=== PATIENT | female | born 1950 | race Caucasian/White ===

== ENCOUNTER → 2016-08-06 | Outpatient (CLI) | payer OTHER ==
--- NOTE | 2016-08-06 14:46 | DIAGNOSTIC IMAGING REPORT ---
RIGHT KNEE 4 OR MORE CLINICAL HISTORY: RIGHT KNEE AND LEFT SHOULDER PAIN Right pain COMPARISON: None. DISCUSSION: Moderate degenerative change medial joint compartment and patellofemoral joint. Moderate reactive osteophytic change. Lateral joint compartment is generally well preserved. Bony mineralization is within normal limits There is no evidence for soft tissue swelling. IMPRESSION: Moderate rather significant degenerative change patellofemoral joint and medial joint compartment. No acute bony abnormality. Electronically signed by: Jonathon Goldman M.D. 08/06/2016 2:45 PM Dictated Date/Time: 08/06/2016 2:44 PM
--- NOTE | 2016-08-06 14:54 | DIAGNOSTIC IMAGING REPORT ---
LEFT SHOULDER MIN 2 VIEWS CLINICAL HISTORY: Left shoulder pain COMPARISON: None. DISCUSSION: No fractures or dislocations are visualized. There are faint peritendinous calcifications located superior to the left humeral head. The findings are likely secondary to calcific tendinitis. IMPRESSION: 1. No acute fractures or dislocations 2. Probable calcific tendinitis. Electronically signed by: Kevin Cleaning M.D. 08/06/2016 2:52 PM Dictated Date/Time: 08/06/2016 2:52 PM
== END | disposition home or self-care (01) ==
LOC: C.RDSM 13:50
PROVIDERS: ATTEND Internal Medicine
DX: R52 Pain, unspecified (principal)

== ENCOUNTER 2024-02-17 08:07 | Observation (INO) ==
--- NOTE | 2024-01-05 13:33 | PAT Medication Instructions ---
Medication Instructions Date of Service January 05, 2024 Home Medications ascorbic acid (vitamin C) 100 mg tablet (Vitamin C) 100 mg PO DAILY aspirin 81 mg capsule 81 mg PO DAILY baclofen 10 mg tablet 10 mg PO BID cetirizine 10 mg tablet (Zyrtec) 10 mg PO HS cholecalciferol (vitamin D3) 25 mcg (1,000 unit) capsule (Vitamin D3) 25 mcg PO DAILY cyanocobalamin (vitamin B-12) 50 mcg tablet (Vitamin B-12) 50 mcg PO DAILY famotidine 20 mg tablet 20 mg PO BID lactobacillus combination no.4 3 billion cell capsule (Probiotic) 3,000 mmu cells PO DAILY lorazepam 0.5 mg tablet 0.5 mg PO HS PRN meloxicam 15 mg tablet 15 mg PO QAM metoprolol tartrate 50 mg tablet 50 mg PO HS multivitamin 1 tab PO QAM triamterene 37.5 mg-hydrochlorothiazide 25 mg tablet 1 tab PO QAM turmeric root extract 500 mg tablet 1,000 mg PO DAILY valsartan 160 mg tablet 160 mg PO QAM vitamin E 268 mg (400 unit) capsule 268 mg PO DAILY ASK your surgeon for instructions meloxicam 15 mg tablet 15 mg PO QAM ASK your prescriber and surgeon aspirin 81 mg capsule 81 mg PO DAILY STOP taking 2 weeks before surgery (or as soon as possible if surgery is within 2 weeks) turmeric root extract 500 mg tablet 1,000 mg PO DAILY vitamin E 268 mg (400 unit) capsule 268 mg PO DAILY DO NOT take the morning of surgery ascorbic acid (vitamin C) 100 mg tablet (Vitamin C) 100 mg PO DAILY cholecalciferol (vitamin D3) 25 mcg (1,000 unit) capsule (Vitamin D3) 25 mcg PO DAILY cyanocobalamin (vitamin B-12) 50 mcg tablet (Vitamin B-12) 50 mcg PO DAILY lactobacillus combination no.4 3 billion cell capsule (Probiotic) 3,000 mmu cells PO DAILY multivitamin 1 tab PO QAM triamterene 37.5 mg-hydrochlorothiazide 25 mg tablet 1 tab PO QAM valsartan 160 mg tablet 160 mg PO QAM Take morning of surgery With a small sip of water, OTHERWISE NOTHING TO EAT OR DRINK AFTER MIDNIGHT: baclofen 10 mg tablet 10 mg PO BID famotidine 20 mg tablet 20 mg PO BID Take evening before surgery baclofen 10 mg tablet 10 mg PO BID cetirizine 10 mg tablet (Zyrtec) 10 mg PO HS famotidine 20 mg tablet 20 mg PO BID lorazepam 0.5 mg tablet 0.5 mg PO HS PRN(if needed) metoprolol tartrate 50 mg tablet 50 mg PO HS Other Notes If you have any questions please call us at [phone] or [phone] or [phone] or [phone]
--- NOTE | 2024-01-14 12:58 | Anesthesiology Consultation ---
Date of Service January 14, 2024 Assessment & Plan (1) Encounter for pre-operative examination: Plan - awaiting surgeon ordered medical (Waleska Whitney PA-C 01/17/24) and cardiology ([facility] 01/24/24) clearances. Chart Review Chart Review: Pending: Refer to Additional Notes / Consult section and Patient seen in Pre Admission Testing Teaching & Discussion Pre-Anesthesia Teaching/Discussion Notes: Instructed NPO after midnight before surgery, except medications with 15 cc of water. Medication instructions provided according to the PAT guidelines. History Surgery Operation Date: 02/17/24 11:25 Proposed Procedures p OP: Right Total Knee Arthroplasty - Contreras Marvin MD Height/Weight Height: 5 ft 5.5 in Weight: 119.2 kg Allergies Allergy/AdvReac Type Severity Reaction Status Date / Time adhesive Allergy Unknown Rash Verified 01/03/24 10:50 Medications Home Medications Medication Instructions Recorded Confirmed Last Taken ascorbic acid (vitamin C) 100 mg 100 mg PO DAILY 01/03/24 01/03/24 Unknown tablet (Vitamin C) aspirin 81 mg capsule 81 mg PO DAILY 01/03/24 01/03/24 Unknown baclofen 10 mg tablet 10 mg PO BID 01/03/24 01/03/24 Unknown cetirizine 10 mg tablet (Zyrtec) 10 mg PO HS 01/03/24 01/03/24 Unknown cholecalciferol (vitamin D3) 25 25 mcg PO DAILY 01/03/24 01/03/24 Unknown mcg (1,000 unit) capsule (Vitamin D3) cyanocobalamin (vitamin B-12) 50 50 mcg PO DAILY 01/03/24 01/03/24 Unknown mcg tablet (Vitamin B-12) famotidine 20 mg tablet 20 mg PO BID 01/03/24 01/03/24 Unknown lactobacillus combination no.4 3 3,000 mmu cells PO DAILY 01/03/24 01/03/24 Unknown billion cell capsule (Probiotic) lorazepam 0.5 mg tablet 0.5 mg PO HS PRN anxiety 01/03/24 01/03/24 Unknown meloxicam 15 mg tablet 15 mg PO QAM 01/03/24 01/03/24 Unknown metoprolol tartrate 50 mg tablet 50 mg PO HS 01/03/24 01/03/24 Unknown multivitamin 1 tab PO QAM 01/03/24 01/03/24 Unknown triamterene 37.5 1 tab PO QAM 01/03/24 01/03/24 Unknown mg-hydrochlorothiazide 25 mg tablet turmeric root extract 500 mg tablet 1,000 mg PO DAILY 01/03/24 01/03/24 Unknown valsartan 160 mg tablet 160 mg PO QAM 01/03/24 01/03/24 Unknown vitamin E 268 mg (400 unit) capsule 268 mg PO DAILY 01/03/24 01/03/24 Unknown Past Medical History Medical History (Updated 01/14/24 @ 14:26 by Sneha Muñoz PA-C) Anxiety Back pain notes stability-reports occasional flare-denies recent episode Cardiac murmur follows w/ Dr Swann ([facility]) GERD (gastroesophageal reflux disease) controlled, stable per pt History of COVID-19 (2021) no hosp, resolved History of rupture of Achilles tendon (2022) right foot, complete tear-not repaired by patient preference HTN (hypertension) controlled, stable per-white coat HTN PONV (postoperative nausea and vomiting) denies needing scop patch Seasonal allergies Sleep apnea CPAP Slow to wake up after anesthesia denies needing re-intubation Patient denies h/o stroke, seizures, heart attack, heart failure, DM, blood clots/DVTs or blood transfusions. Exercise / Class Metabolic Activity II 4-5 Yardwork/Stairs/Walk up hill (shortness of breath with one flight of stairs since onset of knee dysfunction-ongoing for several years-denies change or worsening-ambulates with cane; denies chest discomfort) Past Surgical History Surgical History (Updated 01/14/24 @ 14:25 by Sneha Muñoz PA-C) History of lumpectomy of left breast benign Hx of section x 2 Hx of cholecystectomy Hx of colonoscopy Past Anesthesia History No Family Hx of Anesthesia Complications and Other (slow to wake-denies needing re-intubation) History of PONV History of PONV (denies needing scop patch) and Hx of Motion Sickness Social History Smoking Status: Never smoker Do You Dip or Chew Tobacco: No Hx Alcohol Use: Yes Alcohol type: beer alcohol intake frequency: holidays/special occasions only Hx Substance Use: No substance use type: does not use Review of Systems Patient denies chest pain, fever, chills, cough, wheezing, or palpitations. Physical Exam Vital Signs Vitals BP 143/68 P 55 TEMP 97.6 SP02 98% on RA RESP 18 Physical Patient resting comfortably in chair in no acute distress, alert and oriented, responding appropriately throughout visit Full cervical extension range of motion without pain TMD < 3 finger breadths Mallampati Score 3 Dentition: one crown, denies chipped or loose teeth, caps, implants or bridges Lungs: normal respiratory effort. Good air movement, clear throughout to auscultation, no adventitious breath sounds Cardiac: regular rate and rhythm, no murmurs noted Carotid arteries: negative bruit bilat Lab Results Anesthesia Preop Results Results Anesthesia Widget: WBC 7.90 K/ul (4.8-10.8) 01/14/24 Hgb 13.3 g/dl (12.0-16.0) 01/14/24 Hct 40.9 % (37.0-47.0) 01/14/24 Plt 296 K/uL (130-400) 01/14/24 Na 138 mmol/L (136-145) 01/14/24 K 4.8 mmol/L (3.5-5.1) 01/14/24 Cl 104 mmol/L (98-107) 01/14/24 CO2 28 mmol/L (21-32) 01/14/24 BUN 26 mg/dl (6-23) H 01/14/24 Creat 1.24 mg/dl (0.6-1.2) H 01/14/24 Glucose Level 86 mg/dl (70-99(Fasting)) 01/14/24 PT 10.4 Seconds (9.0-12.0) 01/14/24 PTT 29 Seconds (21-31) 01/14/24 INR 1.0 (0.9-1.1) 01/14/24 Urine Color Yellow 01/14/24 Urine Appearance Clear (Clear) 01/14/24 Urine pH 6.5 (4.5-7.5) 01/14/24 Urine Specific [place] 1.009 (1.000-1.030) 01/14/24 Urine Protein Negative (Negative) 01/14/24 Urine Glucose (UA) Negative (Negative) 01/14/24 Urine Ketones Negative (Negative) 01/14/24 Urine Blood Negative (Negative) 01/14/24 Urine Nitrite Negative (Negative) 01/14/24 Urine Bilirubin Negative (Negative) 01/14/24 Urine Urobilinogen Negative (Negative) 01/14/24 Urine Leukocyte Esterase 1+ (Negative) H 01/14/24 Urine WBC (Auto) 0-5 /hpf (0-5) 01/14/24 Urine RBC (Auto) 0-2 /hpf (0-2) 01/14/24 Urine Hyaline Casts (Auto) 0-2 /lpf (0-2) 01/14/24 Urine Epithelial Cells (Auto) 0-2 /hpf (0-2) 01/14/24 Urine Bacteria (Auto) None Seen (None Seen) 01/14/24 Blood Type O Positive 01/14/24 Antibody Screen NEGATIVE 01/14/24 Testing Electrocardiogram Date: 06/18/23 NSR, rate 75 bpm Inferior infarct, age undetermined Possible anterolateral infarct cited on or before 04/05/2019 Chest X-Ray Date: 01/14/24 No acute process. Echocardiogram Date: 06/01/23 EF 60-65% Severe aortic valve sclerosis-no aortic valve stenosis, trivial aortic regurgitation Grade I diastolic dysfunction Moderately dilated LA Moderately enlarged RV Stress Test Date: 07/30/23 Dobutamine MPHR 95% Technically difficult study Normal stress echo
--- NOTE | 2024-02-10 10:52 | History & Physical Report ---
Date of Service February 10, 2024 Assessment & Plan (1) DJD (degenerative joint disease) of knee: Plan: Plan is for right total knee replacement with patient's specific implants overnight stay and then discharged to home home health with [facility] (2) Obesity: History of Present Illness Chief Complaint: Right knee pain Primary Care Provider: NO PCP Patient is a morbidly obese 73-year-old female with a history of multiple orthopedic problems which include a chronically torn right Achilles tendon which has failed surgical and conservative treatment. She now presents with greater than 2 years of bilateral knee pain right greater than left. The pain is associated with marked instability marked decreased range of motion and pain rated as an 8 out of 10. She has radiographic evidence of end-stage arthritis of the knees and has failed both Visco and corticosteroid injections as well as PT and bracing. She is admitted for anticipated right total knee with possibility for second stage left total knee in April. Allergies Allergy/AdvReac Type Severity Reaction Status Date / Time adhesive Allergy Unknown Rash Verified 01/03/24 10:50 Home Medications Medication Instructions Recorded Confirmed Type ascorbic acid (vitamin C) 100 mg 100 mg PO DAILY 01/03/24 01/03/24 History tablet (Vitamin C) aspirin 81 mg capsule 81 mg PO DAILY 01/03/24 01/03/24 History baclofen 10 mg tablet 10 mg PO BID 01/03/24 01/03/24 History cetirizine 10 mg tablet (Zyrtec) 10 mg PO HS 01/03/24 01/03/24 History cholecalciferol (vitamin D3) 25 25 mcg PO DAILY 01/03/24 01/03/24 History mcg (1,000 unit) capsule (Vitamin D3) cyanocobalamin (vitamin B-12) 50 50 mcg PO DAILY 01/03/24 01/03/24 History mcg tablet (Vitamin B-12) famotidine 20 mg tablet 20 mg PO BID 01/03/24 01/03/24 History lactobacillus combination no.4 3 3,000 mmu cells PO DAILY 01/03/24 01/03/24 History billion cell capsule (Probiotic) lorazepam 0.5 mg tablet 0.5 mg PO HS PRN anxiety 01/03/24 01/03/24 History meloxicam 15 mg tablet 15 mg PO QAM 01/03/24 01/03/24 History metoprolol tartrate 50 mg tablet 50 mg PO HS 01/03/24 01/03/24 History multivitamin 1 tab PO QAM 01/03/24 01/03/24 History triamterene 37.5 1 tab PO QAM 01/03/24 01/03/24 History mg-hydrochlorothiazide 25 mg tablet turmeric root extract 500 mg tablet 1,000 mg PO DAILY 01/03/24 01/03/24 History valsartan 160 mg tablet 160 mg PO QAM 01/03/24 01/03/24 History vitamin E 268 mg (400 unit) capsule 268 mg PO DAILY 01/03/24 01/03/24 History Past Med/Surg History Problem List (Updated 02/10/24 @ 10:52 by Contreras Marvin MD) Obesity DJD (degenerative joint disease) of knee Encounter for pre-operative examination Medical History Sleep apnea CPAP Back pain notes stability-reports occasional flare-denies recent episode Anxiety Cardiac murmur follows w/ Dr Swann ([facility]) PONV (postoperative nausea and vomiting) denies needing scop patch Slow to wake up after anesthesia denies needing re-intubation GERD (gastroesophageal reflux disease) controlled, stable per pt History of rupture of Achilles tendon (2022) right foot, complete tear-not repaired by patient preference Seasonal allergies History of COVID-19 (2021) no hosp, resolved HTN (hypertension) controlled, stable per-white coat HTN Surgical History Hx of colonoscopy History of lumpectomy of left breast benign Hx of cholecystectomy Hx of section x 2 Social History Smoking Status: Never smoker Second Hand Exposure: No; Do You Dip or Chew Tobacco: No; Tobacco Cessation Education Requested by Patient: No Hx Alcohol Use: Yes Alcohol type: beer Hx Substance Use: No Preferred Language: Divehi Communication Ability: Effective Direct Care Counselor Required: No Beliefs That Will Affect Care: None Current Living Situation: Spouse Other Information That Helps Us Care for You: No Feels Safe at Home: Yes Safety Concerns: Feels Safe At This Time Assistive Devices: Cane and Glasses Review of Systems Review of Systems: Knee pain and instability Ankle pain and stiffness Physical Exam Physical Exam: Weight 120 kg BMI 43 General: Morbidly obese female who appears her stated age. HEENT: NCAT, EOMI, PERRLA Neck: Without bruits Heart: Distant heart sounds regular rate and rhythm sinus bradycardia with faint systolic murmur. Lungs: Breath sounds distant but clear in all frye Abdomen: Obese soft nontender bowel sounds are positive Extremities: Right knee shows varus deformity passive range of motion is 0 to 115 degrees flexion with 3 to 4 mm medial laxity positive effusion and pain. Neurological and vascular: Intact Results & Data Results & Data Vital Signs (Past 12 Hours) Blood pressure 148/70 Pulse 60
[~2024-02-17 08:07] MED LIST: METOPROLOL SUCC 50MG EXT REL TAB PO PRN; ROPIVACAINE 0.5% 5 MG/ML 30 ML VIAL ONE
[2024-02-17] MEDS: LR 60ML/HR IV SCH (09:06)
[2024-02-17] MEDS: CeleBREX 200 MG CAP PO SCH (09:22)
[2024-02-17] MEDS: GABAPENTIN 300 MG CAP PO SCH (09:22)
[2024-02-17] MEDS: traMADol HCL 50 MG TABLET PO SCH (09:22)
[2024-02-17] MEDS: ACETAMINOPHEN 500 MG TAB PO SCH (09:22)
[2024-02-17] MEDS: METOCLOPRAMIDE HCL 10 MG TABLET PO SCH (09:22)
[2024-02-17] MEDS: FAMOTIDINE 20 MG TAB PO SCH ×2 (09:22→20:17)
[2024-02-17] MEDS: dexAMETHasone**PF** 10 MG/ML VIAL IV SCH (09:23)
[2024-02-17] MEDS ORDERED: MIDAZOLAM HCL 1 MG/ML 2ML VIAL ONE ×2 (09:43→10:12)
[2024-02-17] MEDS ORDERED: ONDANSETRON INJ 2 MG/ML 2 ML VIAL IV PRN ×2 (10:13→13:20)
[2024-02-17] MEDS ORDERED: KETOROLAC 30 MG/ML VIAL IV PRN (10:13)
[2024-02-17] MEDS ORDERED: ATROPINE SULFATE 0.1 MG/ML 10ML SYR IV PRN (10:13)
[2024-02-17] MEDS ORDERED: PROMETHAZINE HCL 6.25 MG in SODIUM CHLORIDE 0.9% 50 ML IV PRN (10:13)
[2024-02-17] MEDS ORDERED: ePHEDrine sulfate 50 MG/ML AMP IV PRN (10:13)
[2024-02-17] MEDS ORDERED: HYDROmorphone INJ 1 MG/ML SYRINGE IV PRN (10:13)
--- NOTE | 2024-02-17 10:30 | History & Physical Bridge Note ---
Date of Service February 17, 2024 History & Physical Bridge Note I have examined the patient, reviewed the History & Physical and in the interval since the performance of the History & Physical I have noted the following changes of clinical significance: no changes noted
[2024-02-17] MEDS: TRANEXAMIC ACID 1,000 MG **IV Pre-op IV SCH (10:34)
[2024-02-17] MEDS ORDERED: PROPOFOL IV EMULSION 10 MG/ML 20 ML VIAL IV ONE ×4 (10:43→11:43)
[2024-02-17] MEDS: ceFAZolin 3000MG 3,000 MG/72.5 ML BAG IV SCH (10:50)
[2024-02-17] MEDS ORDERED: LABETALOL HCL IV 5 MG/ML 20ML IV ONE (11:11)
[2024-02-17] MEDS ORDERED: DexMEDEtomidine HCL IV 100 MCG/ML VIAL IV ONE (11:18)
[2024-02-17] MEDS: ORTHO JOINT ANESTHETIC ONE (11:23)
[2024-02-17] MEDS: TRANEXAMIC ACID 1,000 MG **IV Intra-op IV SCH (11:48)
[2024-02-17] MEDS ORDERED: KETOROLAC 30 MG/ML VIAL ONE (12:01)
[2024-02-17] MEDS: ROPIV 0.5% 246mg, Ketorolac 30mg, EPINEPHrine 0.5mg in NSS INFIL SCH (12:14)
--- NOTE | 2024-02-17 12:24 | Post Operative Brief Note ---
Immediate Post Op Note Date of Surgery February 17, 2024 Pre & Post Diagnosis Operation Date: 02/17/24 10:35 Pre-Op Diagnosis: Right Knee Degenerative Joint Disease Post-Op Diagnosis: Right Knee Degenerative Joint Disease I identified the patient and participated in the time-out.: Yes Procedure Operation Date: 02/17/24 10:35 Actual Procedures p Right Total Knee Replacement(Right) - Contreras Marvin MD Surgeon Contreras Marvin MD Body Design Checker none Estimated Blood Loss 150 Findings Consistent with Post-Op Diagnosis Drains Hemovac Drain
--- NOTE | 2024-02-17 12:38 | Operative Report ---
Post Operative Report Pre & Post Diagnosis Operation Date: 02/17/24 10:35 Pre-Op Diagnosis: Right Knee Degenerative Joint Disease Post-Op Diagnosis: Right Knee Degenerative Joint Disease I identified the patient and participated in the time-out.: Yes Procedure Operation Date: 02/17/24 10:35 Actual Procedures p Right Total Knee Replacement(Right) - Contreras Marvin MD Surgeon Contreras Marvin MD Lens Generator none Estimated Blood Loss 150 Findings Consistent with Post-Op Diagnosis severe tricompartmental degenerative changes. Specimens Bone and cartilage fragments Complications none Indications components used: [employer]hew journey 2 posterior stabilized knee system: Femur size 4 with Oxinium coating, tibia size 4 x 11, patella size 32 oval. Description of Procedure Following satisfactory spinal anesthesia the patient was supine on the operating room table. The right lower extremity was prepared with ChloraPrep and draped sterilely. A surgical timeout was performed. A midline incision was made and deepened through a fairly large subcutaneous fat layer. Hemostasis was obtained. A median parapatellar arthrotomy was performed. The knee showed the changes noted above. Attention was first turned to the patella. The patella was freehand cut and sized for a 32 button. This did relax the extensor mechanism to enhance exposure to the lateral side of the knee. The cruciate ligaments were excised. The patient matched femoral block was applied. Femoral distal rotation and resection were setting completed. The 4-in-1 block was used to finish preparation of the femur. The tibial meniscal fragments were excised. The patient matched tibial block was applied. Tibial resection was completed. Soft tissue balancing was completed in flexion and extension. A trial reduction with the above-mentioned components was performed and showed very good tensioning and stability on the collateral ligaments from full extension to more than 100 [id number] degrees of flexion limited by the size of the patient's leg. The patella tracked well throughout. The trial components were removed. The capsule was prepared with the orthopedic cocktail. After irrigation and drying the components were cemented using Pop Z be cement cementing the tibia first, femur second, and patella third. When the cemented hardened the knee was checked and showed very good stability and patellar tracking. The wound was irrigated with 500 cc of experience irrigation. A Hemovac drain was placed. The arthrotomy was closed with interrupted [id number] sutures of 1 Vicryl and a running suture of 0 strata fix. Following irrigation the deeper subcutaneous fat layer was closed with 0 strata fix. The most superficial layer with a running subcuticular stitch of 3 oh strata fix. Dermabond Prineo and a negative pressure wound dressing were applied. Patient was returned to her bed and taken to the recovery room in stable condition. I attest to the content of the Intraoperative Record and any orders documented therein. Any exceptions are noted below.
--- NOTE | 2024-02-17 12:54 | Anesthesiology Progress Note ---
Date of Service February 17, 2024 Anesthesia Post Procedure Vital Signs Vital Signs: Temp Pulse Pulse Resp BP Pulse Ox O2 Del Method 02/17/24 12:28 36.4 C L 66 18 127/58 L 100 Oxymask 02/17/24 09:05 36.8 C 67 18 195/79 H 97 Room Air O2 Flow Rate 02/17/24 12:28 9 02/17/24 09:05 Pain Intensity Left Lower Back: Pain Intensity: 5 Transfer of Care Handoff Completed per policy Notes Mental Status: alert / awake / arousable Patient Amnestic to Procedure: Yes Nausea / Vomiting: adequately controlled Pain: adequately controlled Airway Patency, RR, SpO2: stable & adequate BP & HR: stable & adequate Hydration State: stable & adequate Neuraxial Anesthesia: was administered and sensory block is resolving Anesthetic Complications: no major complications apparent
[2024-02-17] MEDS ORDERED: LORazepam 0.5 MG TAB PO PRN (13:20)
[2024-02-17] MEDS ORDERED: bisacodyL 10 MG SUPP PR PRN (13:20)
[2024-02-17] MEDS ORDERED: METOCLOPRAMIDE HCL INJ 5 MG/ML 2 ML VIAL IV PRN (13:20)
[2024-02-17] MEDS ORDERED: NALOXONE HCL 0.4 MG/1 ML VIAL/CARP IV PRN (13:20)
[2024-02-17] MEDS ORDERED: MAGNESIUM HYDROXIDE SUSP 30 ML UDC PO PRN (13:20)
[2024-02-17] MEDS: SODIUM CHLORIDE 0.9% 1,000 ML IV SCH (14:23)
[2024-02-17] MEDS: traMADol HCL 50 MG TABLET PO PRN (16:23)
[2024-02-17] MEDS: ceFAZolin 2000MG 2,000 MG/15 ML SYR IV SCH (18:05)
[2024-02-17] MEDS: BACLOFEN 10 MG TAB PO SCH (20:17)
[2024-02-17] MEDS: METOPROLOL SUCC 50MG EXT REL TAB PO SCH (20:17)
[2024-02-17] MEDS: ASPIRIN 81 MG ECTAB PO SCH (20:17)
[2024-02-17] MEDS: CETIRIZINE HCL 10 MG TABLET PO SCH (20:17)
[2024-02-17] MEDS: DOCUSATE SODIUM 100 MG CAP PO SCH (20:17)
[2024-02-17] MEDS: SENNA 8.6 MG TAB PO SCH (20:17)
[2024-02-18 05:36] LABS: Hematocrit (blood only) 32.9 % (37.0-47.0); Mean Corpuscular Hgb Conc 33.4 g/dL (32.0-36.0); Mean Corpuscular Volume 89.6 fL (80.0-100.0); Mean Platelet Volume 9.5 fL (9.4-12.4); Platelet Count 268 K/uL (130-400); RDW Coefficient of Variation 12.5 % (11.5-14.5); RDW Standard Deviation 41.2 fL (36.4-46.3); Red Blood Count 3.67 M/uL (4.20-5.40)
[2024-02-18 05:56] LABS: Creatinine Clr Calc Pharmacy 48.3 ml/min; Est GFR (African American) 45.3 ml/min; Est GFR (Non-African American) 39.1 ml/min; Potassium 4.3 mmol/L (3.5-5.1)
--- NOTE | 2024-02-18 07:16 | Orthopedic Progress Note ---
Date of Service February 18, 2024 Assessment & Plan (1) Obesity: (2) DJD (degenerative joint disease) of knee: Plan: patient is stable today. Rehabilitation placement is pending. We will add a CPAP machine per patient's request. Also DC meloxicam as BUN and creatinine are slightly elevated. Discharged pending rehabilitation bed availability. Admission and Anticipated Discharge Date Admission Date: February 17, 2024 Subjective postoperative day #1 right total knee replacement Patient reports no complaints of pain. She slept well last night. She is awaiting disposition as she has changed her plan and would like to go to a rehab forrecovery Physical Exam Physical Exam: Patient is examined at the bedside she is awake alert and oriented x 3 Her dressing is clean dry and intact her thigh and calf are soft and nontender and she is neurologically and vascularly intact Results & Data Vital Signs (Past 12 Hours) Vital Signs Temp Pulse Resp BP Pulse Ox O2 Del Method 02/18/24 03:00 36.6 C 59 L 18 159/75 H 95 Room Air 02/17/24 23:00 36.4 C L 62 16 157/68 H 94 Room Air 02/17/24 19:20 36.7 C 61 18 145/64 H 92 Room Air Laboratory Results hemoglobin is stable at 11 BUN and creatinine are slightly elevated
[2024-02-18 07:37] VITALS: RESP 19
[2024-02-18] MEDS: ADVANCED PROBIOTIC 625 MG CAPSULE PO SCH (08:45)
[2024-02-18] MEDS: TRIAMTERENE/HCTZ 37.5/25MG TAB PO SCH (08:46)
[2024-02-18] MEDS: MULTIVITAMIN TAB PO SCH (08:46)
[2024-02-18] MEDS: CHOLECALCIFEROL 25 MCG (1000 UNITS) TAB PO SCH (08:46)
[2024-02-18] MEDS: CYANOCOBALAMIN (B-12) 100 MCG TABLET PO SCH (08:46)
[2024-02-18] MEDS: TOCOPHERYL, DL-ALPHA 400 UNITS 180 MG CAP PO SCH (08:46)
[2024-02-18] MEDS: VALSARTAN 80 MG TAB PO SCH (08:47)
[2024-02-18] MEDS ORDERED: NON-FORMULARY MEDICATION (Ascorbic Acid (Vitamin C) [Vitamin C] 100 mg Tablet) PO SCH (09:00)
[2024-02-18] MEDS ORDERED: MELOXICAM 7.5 MG TAB PO SCH (09:00)
[2024-02-18 11:38] VITALS: BP 144/69; PULSE 56; TEMP 97.7; O2SAT 100
--- NOTE | 2024-02-23 20:27 | Discharge Summary ---
Date of Service February 23, 2024 Admission HPI Per Admitting Provider Patient is a morbidly obese 73-year-old female with a history of multiple orthopedic problems which include a chronically torn right Achilles tendon which has failed surgical and conservative treatment. She now presents with greater than 2 years of bilateral knee pain right greater than left. The pain is associated with marked instability marked decreased range of motion and pain rated as an 8 out of 10. She has radiographic evidence of end-stage arthritis of the knees and has failed both Visco and corticosteroid injections as well as PT and bracing. She is admitted for anticipated right total knee with pos sibility for second stage left total knee in April. Admission Exam Per Admitting Provider Physical Exam: Weight 120 kg BMI 43 General: Morbidly obese female who appears her stated age. HEENT: NCAT, EOMI, PERRLA Neck: Without bruits Heart: Distant heart sounds regular rate and rhythm sinus bradycardia with faint systolic murmur. Lungs: Breath sounds distant but clear in all frye Abdomen: Obese soft nontender bowel sounds are positive Extremities: Right knee shows varus deformity passive range of motion is 0 to 115 degrees flexion with 3 to 4 mm medial laxity positive effusion and pain. Neurological and vascular: Intact Principal Diagnosis right knee osteoarthritis Discharge Data Allergies Allergy/AdvReac Type Severity Reaction Status Date / Time adhesive Allergy Intermediate Rash Verified 02/17/24 09:19 latex Allergy Intermediate rash, Verified 02/17/24 09:19 redness of skin levofloxacin Allergy Mild Unknown; ? Verified 02/17/24 09:19 Hives Sulfa (Sulfonamide Allergy Mild Unknown: ? Verified 02/17/24 09:19 Antibiotics) Hives Procedures Performed Operation Date: 02/17/24 10:35 Actual Procedures p Right Total Knee Replacement(Right) - Contreras Marvin MD Ordered Studies 02/17/24 05:00 US - OR guided needle placemen Routine Hospital Course (1) Obesity: (2) DJD (degenerative joint disease) of knee: Patient: NARCISO MOREIRA Admit Date: 02/17/24 MR#: [id number] Att Phy: Contreras Marvin MD Acct ID: [id number] Shanice Phy: Waleska Hardin PA-C Date: 1950 Fam Phy: Age: 73 Location: 3E Sex: F Room/Bed: E3-1 cc: ~ *NOTICE TO RECEIVING CONSTITUTION PARTY/AGENCY This information is strictly Confidential and protected under [place] law. [place] law prohibits you from making any further disclosure of this information unless further disclosure is expressly permitted by the written consent of the person to whom it pertains or is authorized by law. A general authorization for the release of medical or other information is not sufficient for this purpose. Hospital accepts no responsibility if the information is made available to any other person, INCLUDING THE PATIENT. Date of Service February 18, 2024 Assessment & Plan (1) Obesity: (2) DJD (degenerative joint disease) of knee: Plan: patient is stable today. Rehabilitation placement is pending. We will add a CPAP machine per patient's request. Also DC meloxicam as BUN and creatinine are slightly elevated. Discharged pending rehabilitation bed availability. Admission and Anticipated Discharge Date Admission Date: February 17, 2024 Subjective postoperative day #1 right total knee replacement Patient reports no complaints of pain. She slept well last night. She is awaiting disposition as she has changed her plan and would like to go to a rehab forrecovery Physical Exam Physical Exam: Patient is examined at the bedside she is awake alert and oriented x 3 Her dressing is clean dry and intact her thigh and calf are soft and nontender and she is neurologically and vascularly intact Results & Data Vital Signs (Past 12 Hours) Vital Signs Temp Pulse Resp BP Pulse Ox O2 Del Method 02/18/24 03:00 36.6 C 59 L 18 159/75 H 95 Room Air 02/17/24 23:00 36.4 C L 62 16 157/68 H 94 Room Air 02/17/24 19:20 36.7 C 61 18 145/64 H 92 Room Air Laboratory Results hemoglobin is stable at 11 BUN and creatinine are slightly elevated Signed By: <Electronically signed by Contreras Marvin MD> 02/18/24 0716 Created: 02/18/24 0713 Total Time Total Time Spent Total Time Spent (In Minutes): 5 Discharge Plan Discharge Items Patient Disposition: Transfer Inpatient Rehab Fac Reason For Visit: Osetoarthritis Right Knee Discharge Diagnosis: Osteoarthritis right knee Activity: Per Instructions section Non-emergency contact: Surgeon Call non-emergency contact if: you have any medication questions, your pain is not controlled, your temperature is above 101.5, your wound has increased redness and your wound has increased drainage Follow-up/Referrals: [facility] [Outside] (as per surgeon's office ) Contreras Marvin MD [Surgeon] - ( follow-up with Dr. Marvin or his PA in 2 weeks from the day of surgery for your first postoperative visit.) PCP,NO [Physician] - Diet: Regular Addtl Attending Provider Instructions: DR. JUNE POST-OP INSTRUCTIONS FOR TOTAL KNEE ARTHROPLASTY PLEASE REVIEW PRIOR TO SURGERY Day of Surgery You will be admitted and meet the nursing and anesthesia team. Dr. Marvin will see you and sign your operative side. Anesthesia will place your spinal anesthetic in the pre-op area Your surgery will be performed and last approximately 1 2 hours. Upon waking, you will notice a dressing and ice pack on your knee. If you purchased the Breg Cold Compression unit, this will be applied to your knee. You will remain in the recovery room for 1 2 hours, then be transferred to your room in the ambulatory surgical area if you are to go home the same day of your surgery or on the orthopedic floor if you will be staying overnight. Most of Dr. June total knee patients go home the same day as surgery. This depends on how well you feel. Patients generally seem to feel better in their own home environment, and the risk of exposure to bad bugs is much lower. (Your post-operative medications will be sent to your pharmacy approximately 1-2 days prior to your procedure) Day 1 post-op (if you have an overnight stay in the hospital) You will have bloodwork drawn in the morning Physical therapy will evaluate you in the morning. You will start getting out of bed and ambulating with a walker. They will instruct you on knee motion exercises. Use your cold packs or your cold compression unit as instructed. This will decrease swelling and minimize pain. conference services coordinator will discuss your discharge plan. Discharge will generally be around 11am Day 1 post-op (all patients) You will be taking Aspirin 81mg twice for 4 weeks to decrease the risk of a blood clot. You will most likely have a drain and ZEINAB (superficial wound VAC) dressing post-operatively covered by an tiburcio wrap dressing. (home nurse will remove tiburcio wrap/drain) This will keep your incision dry as well as aid in early healing. The batteries will wear out and the VAC will lose suction around day 6 7 post-op. At that time, you may turn off the device and disconnect it from your dressing. You may remove your dressing 10 days after surgery if it becomes bothersome and irritating to your skin. If the dressing appears to be saturated, please call our office. Day 2-14 post-op You will have a home nurse visit to assess your status and remove your tiburcio wrap/drain on post-op day 2. You are permitted to shower immediately with the VAC. Do not soak the dressing let the shower flow on your opposite side, and pat dry the plastic. Once the dressing has been removed, you may shower normally with the incision exposed. Do not rub the area simply let soapy water run over the incision and lightly pat dry. Therapy will begin on post-op day 3. Your therapy prescription will be sent to your home therapy company/therapist You should continue doing your home exercises Week 2 post-op and forward You will have your first post-op appointment 2 weeks after surgery which should have been scheduled for you by our office. This appointme nt will be to check your incision, progression of therapy and pain control. You will continue to use a cane or a walker until you feel safe enough to stop using it. You will have a 6-week post-op appointment which should have been scheduled for you by our office. X-rays will be taken to evaluate the prosthesis. You will continue to advance range of motion. By 3 to 4 months after surgery, you should have almost full range of motion and may resume most activities. You may have some pain around the knee with certain activities this is completely normal. You will be scheduled for a 1-year post-op appointment to assess your outcome (sooner if Dr. Marvin feels it is necessary). Pain: The immediate post-op period after knee replacement surgery can be painful. You should take your pain medicine as you need it, especially prior to physical therapy and bedtime. Your pain WILL get better, and you may transition to a milder pain medicine (with less side effects, such as Tylenol) as soon as possible. It is common to have pain at night that interferes with sleep this can last for several months. Pain medicines can cause nausea and constipation do not take more than you need. You may be prescribed one or more of the following MEDICATIONS: 1. Celebrex this controls inflammation and makes pain medications more effective it will be taken once or twice a day 2. Tylenol a pain medicine that can help to decrease your pain you should take 1000mg three times a day 3. Tramadol a pain medicine that can be taken every 4-6 hours (instead of Oxycodone) as needed to control your pain 4. Oxycodone a VERY strong pain medicine that can be taken every 4- 6 hours (instead of Tramadol) as needed to control your pain. This medication has the most side effects. 5. Aspirin 81mg blood thinning medication to help minimize the risk of development of blood clots unfortunate side effects of pain medicine include nausea and constipation if you experience these issues or have any questions about your post-op medicati ons, call [facility] at for assistance/advice on how to manage these issues Physical therapy is a VERY important part of knee replacement surgery. The office will arrange for a therapist to come to your home to instruct you on exercises. It is very important to practice on your own (or with the assistance of a family member). While in the hospital, you will be shown a ser ies of home exercises you should perform these exercises 3 4 times daily in addition to physical therapy. After the completion of home therapy (approx. 2 weeks), most therapy exercises can be done on your own. You should get up to walk several times a day. Try not to stand longer than 1 hour at a time to minimize swelling. If you develop swelling, you need to elevate your legs/feet at or above the level of your heart. You may progress from walker to cane to ambulating independently as you feel comfortable. Unless it is an emergency, YOU ARE NOT PERMITTED TO HAVE ANY DENTAL CLEANING/WORK UNTIL 3 MONTHS AFTER SURGERY. You will be required to take an antibiotic prior to any dental cleaning or dental work in order to prevent your joint prothesis from getting infected. This medication is a one time per visit dose to be taken one hour prior to appointment. You may call our office for this prescription or your dentist may be willing to prescribe the medication. Remember to contact [facility] at if you develop any signs of infection which include increased swelling, pain, redness, drainage from incision, warmth, fever, chills or severe pain unrelieved by pain medication. If you develop any chest pain or shortness of breath, you should proceed immediately to the closest Emergency Room. It is normal to run a low-grade fever after surgery. If your fever is consistent at 101.0 or higher, you will need to contact the office. Pending Studies at Discharge: No Stand-Alone Forms: My [facility] Skilled Items Patient informed of condition?: Yes DNR: No Discharge Level of Care: Acute rehab Communicable Disease: No Discharge Prognosis: Improving Lines: None Urinary Catheter: No Medications and DC Order Prescriptions: Continued multivitamin Tablet 1 tab PO QAM cetirizine [Zyrtec] 10 mg Tablet 10 mg PO HS meloxicam 15 mg Tablet 15 mg PO QAM Vitamin B-12 50 mcg Tablet 50 mcg PO DAILY famotidine 20 mg Tablet 20 mg PO BID lorazepam 0.5 mg Tablet 0.5 mg PO HS PRN (Reason: anxiety ) baclofen 10 mg Tablet 10 mg PO BID metoprolol tartrate 50 mg Tablet 50 mg PO HS Vitamin C 100 mg Tablet 100 mg PO DAILY triamterene-hydrochlorothiazid 37.5-25 mg Tablet 1 tab PO QAM vitamin E 268 mg (400 unit) Capsule 268 mg PO DAILY valsartan 160 mg Tablet 160 mg PO QAM cholecalciferol (vitamin D3) [Vitamin D3] 25 mcg (1,000 unit) Capsule 25 mcg PO DAILY Probiotic 3 billion cell Capsule 3,000 mmu cells PO DAILY Rx Instructions: administer with a meal turmeric root extract 500 mg Tablet 1,000 mg PO DAILY Held aspirin 81 mg Capsule 81 mg PO DAILY Hold Instructions: You will be taking aspirin 81 mg twice daily for 4 weeks. After the 4 weeks, you can resume your regular once daily dosing. Discharge Orders: Discharge Order (Routine); Ordered 02/18/24 Ordered By: Contreras Iraheta/Other Patient Handouts: DVT Post Op Prevention Admission Data Admit Date/Time: 02/17/24 12:29 Attending Provider: Contreras Marvin Admit Provider: Contreras Marvin Primary Care Provider: Waleska Hardin Other Providers: [facility]; [facility] Other Interventions: Discharge Summary Assessment (RN) Last Done: 02/18/24 14:43
== END 2024-02-18 15:40 ==
LOC: 3E 08:07 → ASU 08:07